=== PATIENT | female | born 1950 | race Caucasian/White ===

== ENCOUNTER 2018-02-13 17:09 | Emergency (ER) | payer MEDICARE ==
[2018-02-13 17:25] VITALS: O2SAT 97
--- NOTE | 2018-02-13 17:34 | ERPHSYRPT ---
- History of Present Illness Time Seen by Provider: 02/13/18 17:26 Source: patient Exam Limitations: no limitations Patient Subjective Stated Complaint: patient has rods in back and fell back in whirpool tub a week ago and hit back on tub and has been sore ever since Triage Nursing Assessment: pt alert and orientedx3, able to ambulate by self, gait is steady, tenderness along spine, skin wamr dry and intact. no abnormalities seen no swelling noted or bruising. Physician History: The patient is a 67-year-old female with her boyfriend complaining that she fell into his hot tub injuring her back a couple of weeks ago. She has been taking Tylenol for the pain. She denies numbness or tingling. She had surgery on her low back for years ago during which rods were placed. She is worried that she may have damaged the rods. The past medical history significant for back surgery, hypertension, diabetes, and high cholesterol. Occurred: other (2 weeks) Reason for Fall: slipped Injuries/Pain Location: back Loss of Consciousness: no loss of consciousness Quality: aching, sharpness Severity of Pain-Max: moderate Severity of Pain-Current: moderate Modifying Factors: Improves With: pain medication (tylenol) Associated Symptoms (Fall): muscle spasms Allergies/Adverse Reactions: Penicillins Allergy (Verified 05/28/16 12:35) promethazine [From Phenergan] Allergy (Verified 02/13/18 17:25) Home Medications: Atorvastatin Calcium [Lipitor 40Mg] 40 mg PO HS 05/28/16 [History] Clonazepam 0.5 mg [Klonopin 0.5 MG] 0.5 mg PO TID PRN 05/28/16 [History] Metformin HCl 500 mg [Glucophage 500 MG] 500 mg PO BID 05/28/16 [History] Metoprolol Tartrate 50 mg [Lopressor 50 MG] 50 mg PO BID 05/28/16 [History ] Hx Tetanus, Diphtheria Vaccination/Date Given: Yes Hx Influenza Vaccination/Date Given: Yes Hx Pneumococcal Vaccination/Date Given: Yes Immunizations Up to Date: Yes - Review of Systems Constitutional: No Fever, No Chills Eyes: No Symptoms Ears, Nose, & Throat: No Symptoms Respiratory: No Cough, No Dyspnea Cardiac: No Chest Pain, No Edema, No Syncope Abdominal/Gastrointestinal: No Abdominal Pain, No Nausea, No Vomiting, No Diarrhea Genitourinary Symptoms: No Dysuria Musculoskeletal: Back Pain, Fall, Injury Skin: No Rash Neurological: No Dizziness, No Focal Weakness, No Sensory Changes Psychological: No Symptoms Endocrine: No Symptoms Hematologic/Lymphatic: No Symptoms Immunological/Allergic: No Symptoms All Other Systems: Reviewed and Negative - Past Medical History Cardiac History: Hypertension Psycho-Social History: Depression - Past Surgical History Past Surgical History: Yes Gastrointestinal: Cholecystectomy Female Surgical History: Hysterectomy Other Surgical History: back surgery x2 - Social History Smoking Status: Never smoker Exposure to second hand smoke: No Drug Use: none Patient Lives Alone: No - Female History Hx Now: No - Nursing Vital Signs Nursing Vital Signs: Initial Vital Signs Temperature 97.8 F 02/13/18 17:10 Pulse Rate 74 02/13/18 17:10 Respiratory Rate 16 02/13/18 17:10 Blood Pressure 160/92 02/13/18 17:10 O2 Sat by Pulse Oximetry 97 02/13/18 17:10 Pain Scale Pain Intensity [Posterior Back 10 ] Pain Intensity 12 - [place] Score Best Eye Response ([place]): (4) open spontaneously Best Verbal Response ([place]): (5) oriented Best Motor Response ([place]): (6) obeys commands Net[place] Total: 15 - Physical Exam General Appearance: no apparent distress, alert Head Injury: no evidence of injury Eye Exam: PERRL/EOMI ENT Exam: airway nml Neck Exam: normal inspection, No tenderness Respiratory/Chest Exam: chest tenderness Cardiovascular Exam: normal heart sounds, regular rate/rhythm Gastrointestinal Exam: soft, No tenderness, No distention, No guarding, No ecchymosis Rectal Exam: not done Back Exam: vertebral tenderness (lumbar), decreased range of motion, muscle spasm (lumbar paraspinous) Extremity Exam: normal inspection, normal range of motion, pelvis stable, No deformities Neurologic Exam: alert, oriented x 3, cooperative, sensation nml, No motor deficits Skin Exam: normal color, warm, dry SpO2 Interpretation: normal SpO2: 97 Oxygen Delivery: Room Air - Radiology Exams L-Spine X-ray Interpretation: Interpreted by me, Negative, No Fracture, No Subluxation, Other (hardware intact) Ordered Tests: Active Orders 24 hr Category Date Time Status LUMBAR LIMITED (2 OR 3 VIEWS) Stat Exams 02/13/18 17:42 Taken Medication Summary Discontinued Medications Generic Name Dose Route Start Last Admin Trade Name Isabel PRN Reason Stop Dose Admin Ketorolac Tromethamine Confirm 02/13/18 17:38 Toradol 30 Mg Injection Administered 02/13/18 17:39 Dose 60 mg .ROUTE .STK-MED ONE Ketorolac Tromethamine 60 mg 02/13/18 17:39 02/13/18 17:40 Toradol 30 Mg Injection IM 02/13/18 17:40 60 mg STAT ONE Administration - Progress Progress: improved - Departure Time of Disposition: 18:07 Departure Disposition: Home Clinical Impression: Back spasm Condition: Stable Critical Care Time: No Referrals: EVARISTO SMITH [Primary Care Provider] - Additional Instructions: You have spasms in your back muscles. You were given Toradol 60 mg IM in the ER. Take [place] one tablet every 4-6 hours as needed. Take Flexeril 5 mg every 8 hours as needed. Follow-up with your surgeon next week. Prescriptions: Cyclobenzaprine HCl [Flexeril] 5 mg PO Q8H PRN PRN #10 tablet PRN Reason: Pain
[2018-02-13] MEDS ORDERED: TORAdol 30 mg Injection ONE (17:38)
[2018-02-13] MEDS: TORAdol 30 mg Injection IM ONE (17:40)
[2018-02-13 18:16] VITALS: BP 146/72; PULSE 58
--- NOTE | 2018-02-14 09:01 | XRAY ---
Indication: Low back pain. Status post fall 3 weeks ago. Comparison: May 28, 2016. 3 views of the lumbar spine demonstrates new T12 superior endplate fracture with approximately 25% height loss. Stable osteopenia, L2-L3 endplate spurring, L4-L5 posterior fusion with intact hardware, cholecystomy clips, and scattered vascular calcifications. Comment: T12 fracture not reported. Telephone report given to Dr. Guo in the ER at 0856 hrs. on February 15, 2016.
== END 2018-02-13 18:20 | disposition home or self-care (01) ==
LOC: ED 17:09
DX: M62.830 Muscle spasm of back (principal)
CPT/HCPCS: 72100; 96372; 99284; J1885